=== PATIENT | male | born 1955 | race African-American/Black ===

== ENCOUNTER → 2018-11-30 | Outpatient (CLI) | payer OTHER ==
[~2018-11-30] MED LIST: CELLCEPT 250 M250 MG PO; CLARITIN10 M2 PO; COLACE CLEAR50 MG PO; COREG25 MG PO; EYE ITCH RELIEF5 ML; FLEXERIL PO; FOLIC ACID1 MG PO; GLUCOSE BITS1 GM PO; HYDROCHLOROTHIA25 M2 PO; INSULIN SYRING1 EA10 IM; LANTUS SUBQ; LIPITOR80 MG PO; LOSARTAN POTAS100 MG PO; LUBRICANT EYE1 EACH OPHTHALMIC; LUBRICATING OPHTHALMIC; LYRICA225 MG PO; MECLIZINE HCL25 M1 PO; METFORMIN HCL500 MG PO; MS CONTIN15 MG PO; NORVASC10 MG PO; OCUFLOX5 ML OPHTHALMIC; PREDNISONE 5 MG5 M1 PO; TRULICITY1.5 MG/0.5 SUBQ; VITAMIN D1000 UNI1 PO; ZOMIG ZMT5 MG PO
== END | disposition home or self-care (01) ==
LOC: M.PC 09-28 10:20
DX: M46.1 Sacroiliitis, not elsewhere classified (principal); M53.3 Sacrococcygeal disorders, not elsewhere classified; M47.896 Other spondylosis, lumbar region; M16.0 Bilateral primary osteoarthritis of hip; E11.9 Type 2 diabetes mellitus without complications; I10 Essential (primary) hypertension; G51.0 Bell's palsy; M51.36 Other intervertebral disc degeneration, lumbar region; M99.73 Connective tissue and disc stenosis of intervertebral foramina of lumbar region; Z98.890 Other specified postprocedural states; Z79.899 Other long term (current) drug therapy; Z79.4 Long term (current) use of insulin

== ENCOUNTER → 2018-12-16 | Outpatient (CLI) | payer OTHER | END | disposition home or self-care (01) | LOC: M.PC 04:52 | DX: M47.816 Spondylosis without myelopathy or radiculopathy, lumbar region (principal); M51.36 Other intervertebral disc degeneration, lumbar region; M53.3 Sacrococcygeal disorders, not elsewhere classified; M48.07 Spinal stenosis, lumbosacral region; M16.0 Bilateral primary osteoarthritis of hip; I10 Essential (primary) hypertension; E11.9 Type 2 diabetes mellitus without complications; Z79.899 Other long term (current) drug therapy; Z98.890 Other specified postprocedural states; Z88.8 Allergy status to other drugs, medicaments and biological substances ==

== ENCOUNTER → 2019-01-18 | Outpatient (CLI) | payer OTHER ==
[2019-01-18 13:35] LABS: POTASSIUM 3.6 mmol/L (3.5-5.1)
== END ==
LOC: M.LAB 04:48
PROVIDERS: Anesthesiology
DX: E87.6 Hypokalemia (principal); E11.9 Type 2 diabetes mellitus without complications